=== PATIENT | female | born 1970 ===

== ENCOUNTER 2017-04-28 13:34 | Emergency (ER) | payer SELFPAY ==
[~2017-04-28] VITALS: Ht 160 cm; Wt 68.0 kg
[2017-04-28] MEDS ORDERED: Methocarbamol 750mg tab ORAL ONE (14:15)
--- NOTE | 2017-04-28 14:58 | Diagnostic Imaging Report ---
Indications: Left knee pain Technique: 3 views of the left knee Findings: Comparison: None No fracture, dislocation, lytic destruction, periosteal reaction, joint space widening or effusion, surrounding soft tissue abnormality, or other acute changes demonstrated. No deformity, alignment abnormality, arthritic change, soft tissue calcification, or other chronic changes demonstrated. IMPRESSION: Negative left knee series.
[2017-04-28] MEDS ORDERED: IBUPROFEN600 MG ORAL (15:02)
[2017-04-28] MEDS ORDERED: ROBAXIN-750750 MG PO (15:02)
[2017-04-28 15:17] VITALS: BP 145/90
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
== END 2017-04-28 17:00 | disposition home or self-care (01) ==
LOC: EDBD 13:34 → EMR 16:12
DX: S16.1XXA Strain of muscle, fascia and tendon at neck level, initial encounter (principal); S80.02XA Contusion of left knee, initial encounter; V43.52XA Car driver injured in collision with other type car in traffic accident, initial encounter; Y92.410 Unspecified street and highway as the place of occurrence of the external cause
CPT/HCPCS: 99284